=== PATIENT | male | born 1965 | race Caucasian/White ===

== ENCOUNTER 2020-01-06 16:18 | Inpatient (IN) | payer OTHER ==
[~2020-01-06] VITALS: Ht 175.3 cm; Wt 75.1 kg
[~2020-01-06 16:18] MED LIST: AMBIEN 10 MG TA10 MG PO; BACTRIM DS TAB1 EACH; CLONAZEPAM 1 MG1 M1 PO; DOXYCYCLINE 10100 M1 PO; PREDNISONE 5 MG5 M1 PO
[2020-01-06 16:37] VITALS: BP 180/97
[2020-01-06 17:08] LABS: HEMATOCRIT 45.8 % (42.0-52.0); HEMOGLOBIN 15.4 gm/dL (14.0-18.0); MCH 31.4 pg (26.0-34.0); MCHC 33.5 g/dL (28.0-37.0); MCV 93.7 fL (80.0-100.0); PLATELET COUNT 354 thou/uL (150-400); RBC 4.89 mil/uL (4.50-6.00); RDW 13.2 % (10.5-14.5); WBC 30.9 thou/uL (4.0-11.0)
[2020-01-06 17:18] LABS: CALCIUM 9.9 mg/dL (8.5-10.1); CREATININE 1.2 mg/dL (0.7-1.3)
[2020-01-06 17:24] LABS: ALBUMIN 3.6 g/dL (3.4-5.0); TOTAL BILIRUBIN 1.1 mg/dL (<0.1-1.0); TOTAL PROTEIN 8.5 g/dL (6.4-8.2)
--- NOTE | 2020-01-06 20:12 | NUR ---
PT TALKED WITH VIA PHONE, HE EXPLAINED TO HER THAT HE WAS GOING TO BE ADMITTED.
[2020-01-06 21:46] VITALS: BP 155/80
[2020-01-06 22:20] VITALS: BP 164/83
[2020-01-06 22:30] VITALS: BP 164/84
--- NOTE | 2020-01-07 03:27 | NUR ---
PATIENT ASSESSED AND IS ALERT X 4. SKIN WARM AND DRY. RESP EVEN AND UNLABORED. NO SKIN ISSUES NOTED. IV IN RIGHT AC AND CONNECTED NEW FLUIDS OF NORMAL SALINE AT 80/HOUR. PATIENT STATED "I WANT MY AMBEIN". PAIN STATED IN ABDOMEN MOSTLY ON BOTH SIDES. NO NAUSEA STATED ON ADMISSION. PP 2/2. NO EDEMA NOTED IN LOWER EXTREMITIES. ON ROOM AIR. GOT REPORT THAT HE DID NOT TAKE ANY MEDICATION. CALLED BUT LEFT MESSAGE ON VERIFY MED LIST BUT SHE DID NOT ANSWER HER PHONE. FREIGHT RATE ANALYST CALLED AND RECEIVED ORDER FOR EVELYNEIEN. UP AD SHAUN IN ROOM AND VOIDS PER NATHANAEL. CONT PLAN OF CARE. PAIN MED GIVEN IN ED.
--- NOTE | 2020-01-07 03:34 | NUR ---
ZOFRAN GIVEN FOR NAUSEA. ALSO MORPHINE GIVEN AT 0125 PER REQUEST FOR ABDOMINAL PAIN. SLEEPING EVER SINCE. WILL MONITOR PAIN CONTROL. IS IN ISOLATION TO R/O COVID.
[2020-01-07 03:39] LABS: RDW 13.2 % (10.5-14.5)
[2020-01-07 03:42] LABS: HEMOGLOBIN 14.5 gm/dL (14.0-18.0); MCHC 33.7 g/dL (28.0-37.0); MCV 94.9 fL (80.0-100.0); RBC 4.53 mil/uL (4.50-6.00)
[2020-01-07 03:44] LABS: WBC 40.2 thou/uL (4.0-11.0)
[2020-01-07 03:48] LABS: CREATININE 1.2 mg/dL (0.7-1.3); POTASSIUM 4.2 mmol/L (3.5-5.1)
--- NOTE | 2020-01-07 04:32 | NUR ---
TOUR ESCORT CALLED DINORAH NOTIFIEDOF CRITICAL WBC OF 40.2. NO ORDERS.
[2020-01-07 04:41] VITALS: BP 162/82
[2020-01-07 09:10] VITALS: BP 151/84
--- NOTE | 2020-01-07 11:49 | NUR ---
INITIAL ASSESSMENT: SW reviewed chart and spoke with attending physician. Pt was admitted from home due to abdominal pain/colitis. Pt's WBC was 40K this morning. Pt is currently on IV abx. No oxygen. Pt is in Enhanced Isolation to r/o COVID-19. Results are pending. SW spoke with pt via phone. Introduced role of SW. Pt appears to be alert/orientated. Pt reports he lives at home with his family. Prior to admission, he was independent with ADLs. No use of DME. There are about 6 steps that pt has to navigate at home. No hx of services or post acute placement. Pt's PCP is Dr. Dusty Coley. Plan at this time is for pt to discharge home when medically stable. SW is following to assist as needed with discharge planning.
[2020-01-07 14:16] LABS: AMP/METHAMP Negative (Negative); BARBITURATES Negative (Negative); BENZODIAZEPINES Negative (Negative); COCAINE POSITIVE (Negative); METHADONE Negative (Negative); OPIATES POSITIVE (Negative); PCP Negative (Negative)
[2020-01-07 16:50] VITALS: BP 137/77
--- NOTE | 2020-01-07 18:10 | NUR ---
Assumed patient care at 0715. Vital signs have been stable throughout this shift except for an oral temp of 100.8. Patient has has severe abdominal pain "Level nine." He has requested and received Morphine and Hydromorphone as ordered per IV push; these have reduced his pain to a level "seven." Patient has had IV fluids running at 80cc/hr. He has had water to drink, the last sip being around noon. At 1515, this nurse recieved a call from Dr Bearden. 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 Dr Bearden, as well as Dr Main gave verbal orders to transfer patient "emergent" to a Hospital that performs vascular surgeries. Case Management and Executive Search Consultant notified; they arranged for Transfer via Ambulance to [facility]. Patient's , Migdalia notified. verbalized an understanding, as did patient. Patient has been alert and oriented x's 4 while awake. He has napped off and on. He has been pleasant and cooperative with all medications/Treatment. Attempted to call Report to Research Charge Nurse without getting through. Will call again, as patient is getting ready to leave via Ambulance.
[2020-01-08 00:07] LABS: GLYCOHEMOGLOBIN (HGB A1C) 6.2 % (4.8-5.6)
== END 2020-01-07 18:54 | disposition short-term general hospital (02) | DRG 871 ==
LOC: ER 16:18 → 3W 18:47 → EROBS 18:47 → 3W 22:25
PROVIDERS: Emergency Medicine; Nurse Practitioner Family; ADMIT Internal Medicine
DX: A41.9 Sepsis, unspecified organism (principal); K55.049 Acute infarction of large intestine, extent unspecified; K55.1 Chronic vascular disorders of intestine; K52.9 Noninfective gastroenteritis and colitis, unspecified; D72.829 Elevated white blood cell count, unspecified; F17.210 Nicotine dependence, cigarettes, uncomplicated; R73.9 Hyperglycemia, unspecified; I10 Essential (primary) hypertension; F12.10 Cannabis abuse, uncomplicated; F10.10 Alcohol abuse, uncomplicated; K21.9 Gastro-esophageal reflux disease without esophagitis; F41.9 Anxiety disorder, unspecified; F32.9 Major depressive disorder, single episode, unspecified; Z79.899 Other long term (current) drug therapy; Z83.6 Family history of other diseases of the respiratory system; Z20.828 Contact with and (suspected) exposure to other viral communicable diseases
CPT/HCPCS: 10879